=== PATIENT | female | born 1970 | race African-American/Black ===

== ENCOUNTER 2017-03-08 22:25 | Emergency (ER) | payer OTHER ==
[2017-03-08 22:50] VITALS: BP 118/74
[2017-03-08] MEDS ORDERED: ONDANSETRON HCL INJ/PF 4 MG/2 ML SDV IV ONE (22:57)
[2017-03-09 00:15] LABS: ABSOLUTE EOSINOPHILS # (AUTO) 0.1 10^3/uL (0.0-0.6); ABSOLUTE MONOCYTES (AUTO) 0.4 10^3/uL (0.1-1.4); ABSOLUTE NEUT (AUTO) 8.7 10^3/uL (1.7-8.2); BASOPHILS % (AUTO) 0.3 % (0-2); EOSINOPHILS % (AUTO) 0.5 % (0-6); HEMOGLOBIN 12.1 g/dL (12.0-15.5); HGB HCT DIFFERENCE 0.3; LYMPHOCYTES % (AUTO) 9.7 % (13-45); MEAN CORPUSCULAR HEMOGLOBIN 30.6 pg (27.0-33.4); MEAN CORPUSCULAR HGB CONC 33.7 g/dL (32.0-36.0); MEAN CORPUSCULAR VOLUME 91 fl (80-97); MONOCYTES % (AUTO) 3.7 % (3-13); RED BLOOD COUNT 3.95 10^6/uL (3.72-5.28); RED CELL DISTRIBUTION WIDTH 15.8 % (11.5-14.0); SEGMENTED NEUTROPHILS % (AUTO) 85.8 % (42-78); WHITE BLOOD COUNT 10.2 10^3/uL (4.0-10.5)
[2017-03-09 00:20] LABS: APPEARANCE,URINE SLIGHTLY-CLOUDY; BILIRUBIN,URINE NEGATIVE (NEGATIVE); GLUCOSE, URINE NEGATIVE (NEGATIVE); KETONES,URINE NEGATIVE (NEGATIVE); LEUKOCYTE ESTERASE,URINE NEGATIVE (NEGATIVE); NITRITE,URINE NEGATIVE (NEGATIVE); PROTEIN,URINE 30 mg/dL (NEGATIVE); URINE SPECIFIC GRAVITY 1.017; UROBILINOGEN,URINE NEGATIVE mg/dL (<2.0)
[2017-03-09] MEDS ORDERED: ONDANSETRON 4 MG TAB.RAPDIS PO ONE (00:21)
--- NOTE | 2017-03-09 00:22 | ER Document Report ---
ED GI/ - General Mode of Arrival: Ambulatory Information source: Patient TRAVEL OUTSIDE OF THE [place] IN LAST 30 DAYS: No - HPI Patient complains to provider of: Diarrhea, Vomiting Onset: Just prior to arrival - Refer to HPI notes Associated symptoms: Nausea Similar symptoms previously: No Recently seen / treated by doctor: No <SAMEERA ARTEAGA - Last Filed: 03/09/17 01:39> <DAVID POLLOCK - Last Filed: 03/09/17 03:27> - General Chief Complaint: Nausea/Vomiting/Diarrhea Stated Complaint: VOMITING/DIARRHEA Time Seen by Provider: 03/09/17 00:06 Notes: Patient is a 46-year-old female presented emergency department with her 2 sons and has been for nausea, vomiting, and diarrhea. Patient and her 2 sons are being evaluated tonight for the symptoms. The family had dinner this evening and the patient states that she has vomited times and had diarrhea 2 since 20: 00 this evening. Patient denies any nausea at the time of exam. Patient is a little, broccoli and salad for dinner. Patient states she takes Prilosec and calcium. Patient's primary care physician is Ta Armenta. Patient has no other complaints. Patient is allergic to penicillin. (SAMEERA ARTEAGA) - Related Data Allergies/Adverse Reactions: Penicillins Allergy (Verified 03/08/17 22:46) Past Medical History - General Information source: Patient - Social History Smoking Status: Never Smoker Cigarette use (# per day): No Chew tobacco use (# tins/day): No Smoking Education Provided: No Frequency of alcohol use: None Drug Abuse: None Family History: None Patient has suicidal ideation: No Patient has homicidal ideation: No - Medical History Medical History: Negative Surgical Hx: Negative <SAMEERA ARTEAGA - Last Filed: 03/09/17 01:39> Review of Systems - Review of Systems Constitutional: No symptoms reported EENT: No symptoms reported Cardiovascular: No symptoms reported Respiratory: No symptoms reported Gastrointestinal: See HPI, Diarrhea, Nausea, Vomiting Genitourinary: No symptoms reported Female Genitourinary: No symptoms reported Musculoskeletal: No symptoms reported Skin: No symptoms reported Hematologic/Lymphatic: No symptoms reported Neurological/Psychological: No symptoms reported -: Yes All other systems reviewed and negative <SAMEERA ARTEAGA - Last Filed: 03/09/17 01:39> Physical Exam <SAMEERA ARTEAGA - Last Filed: 03/09/17 01:39> <DAVID POLLOCK - Last Filed: 03/09/17 03:27> - Vital signs Vitals: Temp Pulse Resp BP Pulse Ox 98.4 F 72 16 118/74 98 03/08/17 22:46 03/08/17 22:46 03/08/17 22:46 03/08/17 22:46 03/08/17 22:46 - Notes Notes: GENERAL: Alert, interacts well. No acute distress. HEAD: Normocephalic, atraumatic. EYES: Appear normal. Pupils equal, round, and reactive to light. ENT: Moist mucus membranes, tongue midline. NECK: Full range of motion. Supple. Trachea midline. LUNGS: Clear to auscultation bilaterally, no wheezes, rales, or rhonchi. No respiratory distress. HEART: Regular rate and rhythm. No murmurs, gallops, or rubs. ABDOMEN: Soft, non-tender. Non-distended. Normal bowel sounds. EXTREMITIES: Moves all 4 extremities spontaneously. Normal strength. No edema. NEUROLOGICAL: Alert and oriented x3. Normal speech. No focal neurological deficits. GSC 15. PSYCH: Normal affect, normal mood. SKIN: Warm, dry, normal turgor. No rashes or lesions noted. (SAMEERA ARTEAGA) Course - Laboratory Result Diagrams: 03/08/17 23:45 03/08/17 23:45 <SAMEERA ARTEAGA - Last Filed: 03/09/17 01:39> - Laboratory Result Diagrams: 03/08/17 23:45 03/08/17 23:45 <DAVID POLLOCK - Last Filed: 03/09/17 03:27> - Re-evaluation Re-evalutation: 03/09/17 00:24 Presents emergency department chief plan vomiting and diarrhea onset 2 hours ago after eating dinner her sons are being seen for the same thing. She is well -appearing nontoxic said she had 2 episodes of nonbloody diarrhea and one episode of vomiting. Right now she is not complaining of anything she is not nauseated she is not actively vomiting she denies any abdominal pain fever chills chronic medical problems she is awake alert vital signs are stable no acute abdominal guarding rebound or rigidity. And give her oral Zofran discussed oral hydration and diarrhea. She will be discharged on a to go pack for Zofran follow-up primary care physician in 1-2 days. Patient does not need any emergent laboratory evaluation her IV fluids as she is currently feeling well and is orally hydrating. And discussed reasons for ED return sooner (DAVID POLLOCK) - Vital Signs Vital signs: Temp Pulse Resp BP Pulse Ox 98.4 F 72 16 118/74 98 03/08/17 22:46 03/08/17 22:46 03/08/17 22:46 03/08/17 22:46 03/08/17 22:46 - Laboratory Laboratory results interpreted by me: 03/08/17 03/08/17 03/08/17 23:40 23:45 23:45 RDW 15.8 H Seg Neutrophils % 85.8 H Lymphocytes % 9.7 L Absolute Neutrophils 8.7 H Glucose 117 H AST 39 H Total Protein 8.4 H Urine Protein 30 H Urine Ascorbic Acid 40 H Discharge <SAMEERA ARTEAGA - Last Filed: 03/09/17 01:39> <DAVID POLLOCK - Last Filed: 03/09/17 03:27> - Discharge Clinical Impression: Vomiting and diarrhea Condition: Stable Disposition: HOME, SELF-CARE Additional Instructions: Vomiting Vomiting can be part of many illnesses. Most cases of vomiting are due to gastroenteritis, usually a viral infection in the intestinal tract. There is no specific treatment. The disease will end by itself. For now, the main danger to your child is dehydration. During the first few hours of the illness, give clear liquids, such as Pedialyte. Try to give small quantities frequently, such as a teaspoon of liquid every minute or about an ounce of fluids every five to ten minutes. Medications may be prescribed by the physician for special cases. After an hour or two of fluids without vomiting, add rice cereal, toast, applesauce, or bananas and other more solid foods to the clear liquids. Call the physician or go to the hospital if vomiting increases or blood appears in the bowel movement or vomitus; if your child fails to improve, or if signs of dehydration occur (no wet diapers for eight to twelve hours, tongue and mouth become dry, not acting as alert as usual). Diarrhea Diarrhea means frequent, watery stools. There are many causes. Any problem that keeps the intestinal tract from absorbing water from the stool can lead to diarrhea. A sudden new diarrhea problem is usually caused by a virus, food sensitivity, toxic bacteria, or drugs. In this case, we expect the problem to go away soon. Testing is done only if you seem seriously ill from the diarrhea. If you have chronic diarrhea, or diarrhea that keeps coming back, we need to find out why. Chronic diarrhea can be due to inflammation of the bowels such as Crohn's disease or ulcerative colitis, food sensitivity such as intolerance to lactose or wheat protein, irritable bowel syndrome, and other problems. If your diarrhea is a significant problem but it's not clear why you have it, we' ll refer you to a specialist for further testing. During an episode of diarrhea, drink small amounts (two to six ounces) of clear liquids (soft drinks, sport drinks, herb teas, broth, etc). Take fluids frequently to prevent dehydration. It's usually not a problem to take mild anti- diarrhea medication such as Kaopectate or Pepto-Bismol. As the diarrhea eases, advance to small amounts of bland food (mashed potato, toast) for 24 hours. Call the physician if blood appears in your vomit or stool, if vomiting lasts longer than 24 hours, if the abdominal pain worsens or becomes localized to one area, if you develop high fever, or if you become lightheaded and weak. [place] return for increasing worsening or new symptoms Referrals: TA ARMENTA PA [Primary Care Provider] - Follow up as needed Scribe Attestation: 03/09/17 00:26 I personally performed the services described in the documentation reviewed the documentation recorded by my scribe in my presence and it accurately and completely records my words and actions (DAVID POLLOCK) Scribe Documentation - Scribe Written by Rajeev:: Rajeev Hummel, 03/09/2017 140 acting as scribe for :: Juan Jose <SAMEERA ARTEAGA - Last Filed: 03/09/17 01:39>
[2017-03-09] MEDS ORDERED: ONDANSETRON ODT 4 MG TAB (6 TAB/DSPK) PO PRN (00:26)
[2017-03-09 00:35] LABS: ALANINE AMINOTRANSFERASE 39 U/L (9-52); ALBUMIN 4.5 g/dL (3.5-5.0); ALKALINE PHOSPHATASE 103 U/L (38-126); ANION GAP 11 (5-19); ASPARTATE AMINO TRANSFERASE 39 U/L (14-36); BILIRUBIN,DIRECT 0.2 mg/dL (0.0-0.4); BILIRUBIN,TOTAL 0.4 mg/dL (0.2-1.3); BLOOD UREA NITROGEN 13 mg/dL (7-20); CALCIUM 9.9 mg/dL (8.4-10.2); CARBON DIOXIDE 26 mmol/L (22-30); CHLORIDE 103 mmol/L (98-107); CREATININE RESULT 0.83 mg/dL (0.52-1.25); GLUCOSE 117 mg/dL (75-110); POTASSIUM 4.2 mmol/L (3.6-5.0); TOTAL PROTEIN 8.4 g/dL (6.3-8.2)
== END 2017-03-09 00:56 | disposition home or self-care (01) ==
LOC: ER 22:25
DX: R11.2 Nausea with vomiting, unspecified (principal); R19.7 Diarrhea, unspecified
CPT/HCPCS: 99284; 36415; 85025; 80053; 81001; S0119